=== PATIENT | female | born 1940 | race African-American/Black ===

== ENCOUNTER 2021-12-22 14:26 | Inpatient (IN) | payer OTHER, BC ==
[2021-12-22 14:48] VITALS: BMI 27.4
[2021-12-22] MEDS ORDERED: VANCOMYCIN/WATER 1,250 MG/250 ML BAG IVPB ONE (16:15)
[2021-12-22] MEDS ORDERED: PIPERACILLIN/TAZOB 3.375 GM 3.375 GM in DEXTROSE 5%-WATER - 50 ML IVPB ONE (16:16)
[2021-12-22 17:40] LABS: BASO % 0.4 % (0-2.0); EOS % 0.5 % (0-4.5); HEMATOCRIT 31.4 % (32.4-45.2); HEMOGLOBIN 10.5 GM/dL (10.7-15.3); LYMPH % 6.3 % (8-40); MCH 34.1 pg (25.7-33.7); MCHC 33.3 g/dl (32.0-36.0); MEAN CELL VOLUME 102.3 fl (80-96); MEAN PLT VOLUME 8.5 fl (7.5-11.1); MONO % 1.8 % (3.8-10.2); PLATELET COUNT 263 10^3/uL (134-434); RBC 3.07 M/mm3 (3.60-5.2); RDW 13.3 % (11.6-15.6); WHITE BLOOD COUNT 8.6 K/mm3 (4.0-10.0)
[2021-12-22 17:51] LABS: INR 1.16 (0.83-1.09); PROTHROMBIN TIME (PATIENT) 13.4 SEC (9.7-13.0)
[2021-12-22] MEDS ORDERED: VANCOMYCIN/WATER 1250 MG 1,250 MG/250 ML BAG IVPB ONE (18:11)
[2021-12-22] MEDS ORDERED: PIPERACILLIN/TAZOB 3.375 GM 3.375 GM/50 ML BAG IVPB ONE (18:11)
[2021-12-22 18:26] LABS: BLOOD UREA NITROGEN 21.4 mg/dL (7-18)
[2021-12-22 18:27] LABS: ALBUMIN 2.8 g/dl (3.4-5.0)
[2021-12-22 18:31] LABS: BILIRUBIN,TOTAL 0.7 mg/dL (0.2-1)
[2021-12-22 18:32] LABS: TOT PROT 6.9 g/dl (6.4-8.2)
[2021-12-22 20:20] LABS: ANISOCYTOSIS 2+; MACROCYTOSIS 0
[2021-12-22 20:23] LABS: PLATELET ESTIMATE ADEQUATE
[2021-12-22] MEDS ORDERED: CLOTRIMAZOLE 1% CREAM TP SCH (23:15)
[2021-12-22 23:34] LABS: CHLORIDE 105 mmol/L (98-107); SODIUM 139 mmol/L (136-145)
[2021-12-22 23:36] LABS: CALCIUM 8.7 mg/dL (8.5-10.1)
[2021-12-22 23:37] LABS: ALBUMIN 2.6 g/dl (3.4-5.0); ANION GAP 4 MMOL/L (8-16); BLOOD UREA NITROGEN 20.6 mg/dL (7-18); CO2 30 mmol/L (21-32)
[2021-12-22 23:40] LABS: SGOT/AST 31 U/L (15-37); SGPT/ALT 46 U/L (13-61)
[2021-12-22 23:41] LABS: BILIRUBIN,TOTAL 0.8 mg/dL (0.2-1); TOT PROT 6.5 g/dl (6.4-8.2)
[2021-12-22 23:42] LABS: ALK PHOS 144 U/L (45-117)
[2021-12-22 23:44] LABS: GLUCOSE,RANDOM 456 mg/dL (74-106)
[2021-12-23] MEDS ORDERED: INSULIN (NOVOLOG) ASPART 100 UNITS/ML 10ML VIAL SQ SCH ×2 (00:51→07:00)
[2021-12-23] MEDS ORDERED: INSULIN (LEVEMIR) 100 UNITS/ML UNITS SQ ONE (01:01)
[2021-12-23] MEDS: FLUTICASONE/SALMETEROL 100 MCG/50 MCG DISKUS IH SCH ×2 (01:11→09:59)
[2021-12-23 06:57] LABS: BASO % 0.5 % (0-2.0); EOS % 2.6 % (0-4.5); HEMOGLOBIN 10.4 GM/dL (10.7-15.3); LYMPH % 18.3 % (8-40); MCH 33.8 pg (25.7-33.7); MCHC 33.4 g/dl (32.0-36.0); MEAN CELL VOLUME 101.3 fl (80-96); MEAN PLT VOLUME 8.3 fl (7.5-11.1); NEUT % 70.6 % (42.8-82.8); PLATELET COUNT 202 10^3/uL (134-434); RBC 3.07 M/mm3 (3.60-5.2); WHITE BLOOD COUNT 8.8 K/mm3 (4.0-10.0)
[2021-12-23 07:16] LABS: CALCIUM 8.8 mg/dL (8.5-10.1)
[2021-12-23 07:17] LABS: ALBUMIN 2.6 g/dl (3.4-5.0); BLOOD UREA NITROGEN 16.8 mg/dL (7-18)
[2021-12-23 07:20] LABS: CREATININE 0.7 mg/dL (0.55-1.3); PHOSPHOROUS 2.3 mg/dL (2.5-4.9)
[2021-12-23 07:21] LABS: BILIRUBIN,TOTAL 0.8 mg/dL (0.2-1); MAGNESIUM 1.6 mg/dL (1.8-2.4)
[2021-12-23 07:22] LABS: TOT PROT 6.4 g/dl (6.4-8.2)
[2021-12-23] MEDS ORDERED: NAPH,MB-DB/K PH,MBDB POWDER PACKET ONE (07:26)
[2021-12-23] MEDS ORDERED: MAGNESIUM SULFATE IN WATER 2 GM/50 ML IVPB IVPB ONE (07:27)
[2021-12-23] MEDS ORDERED: CLOTRIMAZOLE 1% CREAM TP SCH (07:29)
[2021-12-23] MEDS ORDERED: MAGNESIUM 2GM/50ML STERILE WATER IVPB IVPB ONE (07:30)
[2021-12-23] MEDS ORDERED: NAPH,MB-DB/K PH,MBDB POWDER PACKET PO ONE (07:30)
[2021-12-23] MEDS: INSULIN (NOVOLOG) ASPART 100 UNITS/ML 10ML VIAL SQ SCH ×3 (09:08→17:30)
[2021-12-23] MEDS ORDERED: PANTOPRAZOLE 40 MG TABLET PO ONE (09:11)
[2021-12-23] MEDS ORDERED: SPIRONOLACTONE 25 MG TABLET ONE (09:11)
[2021-12-23] MEDS ORDERED: PIPERACILLIN/TAZOB 3.375 GM 3.375 GM/50 ML BAG IVPB ONE (09:12)
[2021-12-23] MEDS ORDERED: ENOXAPARIN NA (PORCINE) 40 MG/0.4 ML DISP.SYRIN SQ ONE (09:12)
[2021-12-23] MEDS ORDERED: MAGNESIUM OXIDE 400 MG TABLET (FP) PO ONE (09:43)
[2021-12-23] MEDS: SPIRONOLACTONE 25 MG TABLET PO SCH (09:45)
[2021-12-23] MEDS: LOSARTAN POTASSIUM 25 MG TABLET PO SCH (09:45)
[2021-12-23] MEDS: predniSONE 5 MG TABLET (UD) PO SCH (09:46)
[2021-12-23] MEDS: PIPERACILLIN/TAZOB 3.375 GM 3.375 GM in DEXTROSE 5%-WATER - 50 ML IVPB SCH ×3 (09:46→17:31)
[2021-12-23] MEDS: ENOXAPARIN NA (PORCINE) 40 MG/0.4 ML DISP.SYRIN SQ SCH (09:46)
[2021-12-23] MEDS: PANTOPRAZOLE 40 MG TABLET PO SCH (09:46)
[2021-12-23] MEDS ORDERED: PATIENT'S OWN MEDICATION (NON-FORMULARY) (Levalbuterol Tartrate [Levalbuterol Tartrate Hfa IH SCH (10:00)
[2021-12-23] MEDS ORDERED: PIPERACILLIN/TAZOB 3.375 GM 3.375 GM in DEXTROSE 5%-WATER - 50 ML IVPB SCH (10:00)
[2021-12-23] MEDS ORDERED: TROSPIUM CHLORIDE PO SCH (10:00)
[2021-12-23] MEDS ORDERED: VANCOMYCIN 1 GM in D5W (PRE-DOCKED) 1,000 MG/250 ML IVPB SCH ×2 (10:00→20:00)
[2021-12-23] MEDS: VANCOMYCIN/WATER FOR INJ (PEG) 1,000 MG/200 ML BAG IVPB SCH (14:37)
[2021-12-23] MEDS ORDERED: DEXTROSE 5%-WATER - 50 ML IVPB ONE (17:20)
[2021-12-23] MEDS ORDERED: PIPERACILLIN/TAZOBACTAM 3.375 GM VIAL IVPB ONE (17:20)
[2021-12-23] MEDS: CLOTRIMAZOLE 1% CREAM TP SCH (23:32)
[2021-12-23] MEDS: INSULIN (LEVEMIR) 100 UNITS/ML UNITS SQ SCH (23:33)
[2021-12-23] MEDS: ZINC OXIDE 20% TOPICAL OINTMENT 30 GM TUBE TP SCH (23:34)
[2021-12-24] MEDS: FLUTICASONE/SALMETEROL 100 MCG/50 MCG DISKUS IH SCH ×3 (00:17→21:08)
[2021-12-24] MEDS ORDERED: PIPERACILLIN/TAZOBACTAM 3.375 GM VIAL IVPB ONE ×3 (02:29→18:25)
[2021-12-24] MEDS ORDERED: DEXTROSE 5%-WATER - 50 ML IVPB ONE ×3 (02:29→18:25)
[2021-12-24] MEDS: PIPERACILLIN/TAZOB 3.375 GM 3.375 GM in DEXTROSE 5%-WATER - 50 ML IVPB SCH ×3 (02:50→18:36)
[2021-12-24] MEDS: VANCOMYCIN/WATER FOR INJ (PEG) 1,000 MG/200 ML BAG IVPB SCH ×3 (02:51→23:44)
[2021-12-24] MEDS: INSULIN (NOVOLOG) ASPART 100 UNITS/ML 10ML VIAL SQ SCH ×3 (06:44→18:21)
[2021-12-24] MEDS: INSULIN (LEVEMIR) 100 UNITS/ML UNITS SQ SCH ×2 (06:45→21:09)
[2021-12-24 09:48] LABS: HEMOGLOBIN 10.7 GM/dL (10.7-15.3); MCHC 33.5 g/dl (32.0-36.0); MEAN CELL VOLUME 101.5 fl (80-96); MEAN PLT VOLUME 7.9 fl (7.5-11.1); PLATELET COUNT 215 10^3/uL (134-434); RBC 3.15 M/mm3 (3.60-5.2); RDW 12.9 % (11.6-15.6); WHITE BLOOD COUNT 8.4 K/mm3 (4.0-10.0)
[2021-12-24 10:20] LABS: CALCIUM 9.3 mg/dL (8.5-10.1)
[2021-12-24 10:23] LABS: BLOOD UREA NITROGEN 19.5 mg/dL (7-18)
[2021-12-24 10:24] LABS: ALBUMIN 2.6 g/dl (3.4-5.0); MAGNESIUM 1.8 mg/dL (1.8-2.4)
[2021-12-24 10:27] LABS: CREATININE 0.8 mg/dL (0.55-1.3); PHOSPHOROUS 3.6 mg/dL (2.5-4.9)
[2021-12-24 10:29] LABS: BILIRUBIN,TOTAL 1.2 mg/dL (0.2-1); TOT PROT 6.1 g/dl (6.4-8.2)
[2021-12-24] MEDS: PANTOPRAZOLE 40 MG TABLET PO SCH (12:37)
[2021-12-24] MEDS: LOSARTAN POTASSIUM 25 MG TABLET PO SCH (12:37)
[2021-12-24] MEDS: predniSONE 5 MG TABLET (UD) PO SCH (12:37)
[2021-12-24] MEDS: ENOXAPARIN NA (PORCINE) 40 MG/0.4 ML DISP.SYRIN SQ SCH (12:37)
[2021-12-24] MEDS ORDERED: DEXTROSE 50%-WATER - 25 GM/50 ML VIAL IVPUSH PRN (12:37)
[2021-12-24] MEDS: SPIRONOLACTONE 25 MG TABLET PO SCH (12:56)
[2021-12-24] MEDS: CLOTRIMAZOLE 1% CREAM TP SCH ×2 (14:40→21:09)
[2021-12-24] MEDS: ZINC OXIDE 20% TOPICAL OINTMENT 30 GM TUBE TP SCH ×2 (14:41→21:09)
[2021-12-24] MEDS ORDERED: Insulin (LOG) Aspart 100 UNITS/ML VIAL SQ SCH (16:30)
[2021-12-24] MEDS: Insulin (LOG) Aspart 100 UNITS/ML VIAL SQ SCH (18:21)
[2021-12-24] MEDS: ACETAMINOPHEN 325 MG TABLET (FP) PO PRN (19:16)
[2021-12-24] MEDS: DOCUSATE SODIUM 100 MG CAPSULE (FP) PO SCH (21:08)
[2021-12-25] MEDS ORDERED: DEXTROSE 5%-WATER - 50 ML IVPB ONE ×3 (01:36→17:03)
[2021-12-25] MEDS ORDERED: PIPERACILLIN/TAZOBACTAM 3.375 GM VIAL IVPB ONE ×3 (01:36→17:02)
[2021-12-25] MEDS: PIPERACILLIN/TAZOB 3.375 GM 3.375 GM in DEXTROSE 5%-WATER - 50 ML IVPB SCH ×3 (01:53→19:40)
[2021-12-25] MEDS: ACETAMINOPHEN 325 MG TABLET (FP) PO PRN ×3 (02:27→22:40)
[2021-12-25] MEDS: INSULIN (NOVOLOG) ASPART 100 UNITS/ML 10ML VIAL SQ SCH ×3 (06:04→16:35)
[2021-12-25] MEDS: Insulin (LOG) Aspart 100 UNITS/ML VIAL SQ SCH ×3 (06:05→16:34)
[2021-12-25] MEDS: INSULIN (LEVEMIR) 100 UNITS/ML UNITS SQ SCH ×2 (06:05→22:39)
[2021-12-25 09:27] LABS: BASO % 0.4 % (0-2.0); EOS % 1.8 % (0-4.5); HEMATOCRIT 36.1 % (32.4-45.2); HEMOGLOBIN 12.1 GM/dL (10.7-15.3); LYMPH % 10.4 % (8-40); MCH 33.8 pg (25.7-33.7); MCHC 33.6 g/dl (32.0-36.0); MEAN CELL VOLUME 100.6 fl (80-96); MEAN PLT VOLUME 8.3 fl (7.5-11.1); MONO % 8.5 % (3.8-10.2); NEUT % 78.9 % (42.8-82.8); PLATELET COUNT 233 10^3/uL (134-434); RBC 3.59 M/mm3 (3.60-5.2); RDW 12.7 % (11.6-15.6); WHITE BLOOD COUNT 14.5 K/mm3 (4.0-10.0)
[2021-12-25 10:07] LABS: CALCIUM 9.2 mg/dL (8.5-10.1)
[2021-12-25 10:08] LABS: BLOOD UREA NITROGEN 20.7 mg/dL (7-18); MAGNESIUM 1.7 mg/dL (1.8-2.4)
[2021-12-25] MEDS: ENOXAPARIN NA (PORCINE) 40 MG/0.4 ML DISP.SYRIN SQ SCH (10:08)
[2021-12-25] MEDS: LOSARTAN POTASSIUM 25 MG TABLET PO SCH (10:09)
[2021-12-25] MEDS: SPIRONOLACTONE 25 MG TABLET PO SCH (10:09)
[2021-12-25] MEDS: PANTOPRAZOLE 40 MG TABLET PO SCH (10:09)
[2021-12-25] MEDS: DOCUSATE SODIUM 100 MG CAPSULE (FP) PO SCH ×2 (10:09→22:39)
[2021-12-25] MEDS: FLUTICASONE/SALMETEROL 100 MCG/50 MCG DISKUS IH SCH ×2 (10:10→22:39)
[2021-12-25 10:11] LABS: CREATININE 0.8 mg/dL (0.55-1.3); PHOSPHOROUS 3.1 mg/dL (2.5-4.9)
[2021-12-25] MEDS: ZINC OXIDE 20% TOPICAL OINTMENT 30 GM TUBE TP SCH ×2 (10:14→22:40)
[2021-12-25] MEDS: CLOTRIMAZOLE 1% CREAM TP SCH ×2 (10:14→22:40)
[2021-12-25] MEDS: predniSONE 5 MG TABLET (UD) PO SCH (10:26)
[2021-12-25] MEDS: MAGNESIUM SULF 50% (8.12 MEQ/2 ML-1 GM VIAL) IVPB ONE ×2 (15:18→17:53)
[2021-12-25] MEDS: VANCOMYCIN/WATER FOR INJ (PEG) 1,000 MG/200 ML BAG IVPB SCH (16:35)
[2021-12-26] MEDS ORDERED: PIPERACILLIN/TAZOBACTAM 3.375 GM VIAL IVPB ONE ×3 (01:34→17:18)
[2021-12-26] MEDS ORDERED: DEXTROSE 5%-WATER - 50 ML IVPB ONE ×3 (01:34→17:18)
[2021-12-26] MEDS: PIPERACILLIN/TAZOB 3.375 GM 3.375 GM in DEXTROSE 5%-WATER - 50 ML IVPB SCH ×3 (01:43→17:58)
[2021-12-26] MEDS: INSULIN (LEVEMIR) 100 UNITS/ML UNITS SQ SCH ×2 (06:17→22:01)
[2021-12-26] MEDS: INSULIN (NOVOLOG) ASPART 100 UNITS/ML 10ML VIAL SQ SCH ×3 (06:17→17:28)
[2021-12-26] MEDS: Insulin (LOG) Aspart 100 UNITS/ML VIAL SQ SCH ×3 (06:17→17:27)
[2021-12-26] MEDS: ACETAMINOPHEN 325 MG TABLET (FP) PO PRN ×2 (08:47→15:06)
[2021-12-26] MEDS ORDERED: VANCOMYCIN 1 GM/200 ML PREMIX BAG IVPB SCH (09:00)
[2021-12-26] MEDS ORDERED: VANCOMYCIN 1 GM in D5W (PRE-DOCKED) 1,000 MG/250 ML IVPB SCH (10:00)
[2021-12-26] MEDS: ZINC OXIDE 20% TOPICAL OINTMENT 30 GM TUBE TP SCH ×2 (10:45→22:02)
[2021-12-26] MEDS: DOCUSATE SODIUM 100 MG CAPSULE (FP) PO SCH ×2 (10:47→22:03)
[2021-12-26] MEDS: PANTOPRAZOLE 40 MG TABLET PO SCH (10:47)
[2021-12-26] MEDS: predniSONE 5 MG TABLET (UD) PO SCH (10:48)
[2021-12-26] MEDS: FLUTICASONE/SALMETEROL 100 MCG/50 MCG DISKUS IH SCH ×2 (10:48→22:00)
[2021-12-26] MEDS: CLOTRIMAZOLE 1% CREAM TP SCH ×2 (10:53→22:01)
[2021-12-26] MEDS: ENOXAPARIN NA (PORCINE) 40 MG/0.4 ML DISP.SYRIN SQ SCH (10:53)
[2021-12-26] MEDS: LOSARTAN POTASSIUM 25 MG TABLET PO SCH (11:34)
[2021-12-26] MEDS ORDERED: SODIUM CHLORIDE 0.9% 500 ML INFUS.BAG IV ONE (12:09)
[2021-12-26] MEDS ORDERED: SODIUM CHLORIDE 500 ML IV ONE ×2 (12:15→14:45)
[2021-12-26] MEDS: SPIRONOLACTONE 25 MG TABLET PO SCH (12:57)
[2021-12-26 13:08] LABS: BASO % 0.3 % (0-2.0); EOS % 1.3 % (0-4.5); HEMATOCRIT 33.8 % (32.4-45.2); HEMOGLOBIN 11.1 GM/dL (10.7-15.3); LYMPH % 12.3 % (8-40); MCH 33.4 pg (25.7-33.7); MCHC 32.8 g/dl (32.0-36.0); MEAN CELL VOLUME 101.8 fl (80-96); MONO % 9.7 % (3.8-10.2); NEUT % 76.4 % (42.8-82.8); PLATELET COUNT 226 10^3/uL (134-434); RBC 3.32 M/mm3 (3.60-5.2); RDW 13.2 % (11.6-15.6); WHITE BLOOD COUNT 18.3 K/mm3 (4.0-10.0)
[2021-12-26 13:36] LABS: CALCIUM 8.6 mg/dL (8.5-10.1)
[2021-12-26 13:37] LABS: ALBUMIN 2.3 g/dl (3.4-5.0); MAGNESIUM 2.3 mg/dL (1.8-2.4)
[2021-12-26 13:40] LABS: CREATININE 1.4 mg/dL (0.55-1.3); PHOSPHOROUS 5.1 mg/dL (2.5-4.9)
[2021-12-26 13:41] LABS: BILIRUBIN,TOTAL 1.6 mg/dL (0.2-1); TOT PROT 5.8 g/dl (6.4-8.2)
[2021-12-27] MEDS ORDERED: PIPERACILLIN/TAZOBACTAM 3.375 GM VIAL IVPB ONE ×3 (01:10→17:03)
[2021-12-27] MEDS ORDERED: DEXTROSE 5%-WATER - 50 ML IVPB ONE ×3 (01:11→17:04)
[2021-12-27] MEDS: PIPERACILLIN/TAZOB 3.375 GM 3.375 GM in DEXTROSE 5%-WATER - 50 ML IVPB SCH ×3 (01:37→17:23)
[2021-12-27] MEDS: INSULIN (NOVOLOG) ASPART 100 UNITS/ML 10ML VIAL SQ SCH ×3 (06:29→17:24)
[2021-12-27] MEDS: Insulin (LOG) Aspart 100 UNITS/ML VIAL SQ SCH ×3 (06:34→17:25)
[2021-12-27] MEDS: INSULIN (LEVEMIR) 100 UNITS/ML UNITS SQ SCH ×2 (06:34→21:25)
[2021-12-27] MEDS: CLOTRIMAZOLE 1% CREAM TP SCH ×2 (10:06→21:24)
[2021-12-27] MEDS: DOCUSATE SODIUM 100 MG CAPSULE (FP) PO SCH ×2 (10:09→21:25)
[2021-12-27] MEDS: PANTOPRAZOLE 40 MG TABLET PO SCH (10:09)
[2021-12-27] MEDS: predniSONE 5 MG TABLET (UD) PO SCH (10:09)
[2021-12-27] MEDS: FLUTICASONE/SALMETEROL 100 MCG/50 MCG DISKUS IH SCH ×2 (10:10→21:24)
[2021-12-27] MEDS: ENOXAPARIN NA (PORCINE) 40 MG/0.4 ML DISP.SYRIN SQ SCH (10:10)
[2021-12-27 10:24] LABS: CALCIUM 8.3 mg/dL (8.5-10.1)
[2021-12-27 10:25] LABS: ALBUMIN 2.2 g/dl (3.4-5.0); BASO % 0.5 % (0-2.0); BLOOD UREA NITROGEN 38.7 mg/dL (7-18); HEMATOCRIT 30.5 % (32.4-45.2); HEMOGLOBIN 10.1 GM/dL (10.7-15.3); MAGNESIUM 2.4 mg/dL (1.8-2.4); MCH 33.7 pg (25.7-33.7); MCHC 33.1 g/dl (32.0-36.0); MEAN CELL VOLUME 101.7 fl (80-96); MEAN PLT VOLUME 7.7 fl (7.5-11.1); MONO % 7.2 % (3.8-10.2); NEUT % 80.3 % (42.8-82.8); PLATELET COUNT 190 10^3/uL (134-434); RDW 12.9 % (11.6-15.6)
[2021-12-27 10:27] LABS: CREATININE 1.3 mg/dL (0.55-1.3)
[2021-12-27 10:29] LABS: BILIRUBIN,TOTAL 0.9 mg/dL (0.2-1); TOT PROT 5.5 g/dl (6.4-8.2)
[2021-12-27] MEDS: metoPROLOL SUCCINATE 25 MG TAB.SR.24H (FP) PO SCH (11:20)
[2021-12-27] MEDS: LOSARTAN POTASSIUM 25 MG TABLET PO SCH (11:20)
[2021-12-27] MEDS: SPIRONOLACTONE 25 MG TABLET PO SCH (11:20)
[2021-12-27] MEDS ORDERED: VANCOMYCIN 1 GM/200 ML PREMIX BAG IVPB SCH (12:00)
[2021-12-27] MEDS: ACETAMINOPHEN 325 MG TABLET (FP) PO PRN (17:50)
[2021-12-27] MEDS ORDERED: guaiFENesin 200 MG/10 ML 10 ML UNIT-DOSE CUPS PO ONE (19:41)
[2021-12-28] MEDS ORDERED: DEXTROSE 5%-WATER - 50 ML IVPB ONE ×3 (02:20→18:18)
[2021-12-28] MEDS ORDERED: PIPERACILLIN/TAZOBACTAM 3.375 GM VIAL IVPB ONE ×3 (02:20→18:18)
[2021-12-28] MEDS: PIPERACILLIN/TAZOB 3.375 GM 3.375 GM in DEXTROSE 5%-WATER - 50 ML IVPB SCH ×3 (02:37→18:56)
[2021-12-28] MEDS: Insulin (LOG) Aspart 100 UNITS/ML VIAL SQ SCH ×3 (06:47→17:42)
[2021-12-28] MEDS: INSULIN (LEVEMIR) 100 UNITS/ML UNITS SQ SCH ×2 (07:44→21:40)
[2021-12-28] MEDS: INSULIN (NOVOLOG) ASPART 100 UNITS/ML 10ML VIAL SQ SCH ×3 (07:44→17:42)
[2021-12-28 09:50] LABS: BASO % 0.6 % (0-2.0); EOS % 3.4 % (0-4.5); HEMATOCRIT 29.2 % (32.4-45.2); HEMOGLOBIN 10.1 GM/dL (10.7-15.3); LYMPH % 15.5 % (8-40); MCH 34.7 pg (25.7-33.7); MCHC 34.6 g/dl (32.0-36.0); MEAN CELL VOLUME 100.4 fl (80-96); MEAN PLT VOLUME 7.6 fl (7.5-11.1); MONO % 6.8 % (3.8-10.2); NEUT % 73.7 % (42.8-82.8); PLATELET COUNT 204 10^3/uL (134-434); RBC 2.91 M/mm3 (3.60-5.2); RDW 12.7 % (11.6-15.6); WHITE BLOOD COUNT 9.5 K/mm3 (4.0-10.0)
[2021-12-28 10:09] LABS: ALBUMIN 2.1 g/dl (3.4-5.0); CALCIUM 8.3 mg/dL (8.5-10.1)
[2021-12-28 10:10] LABS: BLOOD UREA NITROGEN 26.9 mg/dL (7-18)
[2021-12-28 10:12] LABS: CREATININE 0.8 mg/dL (0.55-1.3)
[2021-12-28 10:14] LABS: BILIRUBIN,TOTAL 0.6 mg/dL (0.2-1); TOT PROT 5.6 g/dl (6.4-8.2)
[2021-12-28] MEDS: LOSARTAN POTASSIUM 25 MG TABLET PO SCH (11:10)
[2021-12-28] MEDS: predniSONE 5 MG TABLET (UD) PO SCH (11:11)
[2021-12-28] MEDS: PANTOPRAZOLE 40 MG TABLET PO SCH (11:11)
[2021-12-28] MEDS: ENOXAPARIN NA (PORCINE) 40 MG/0.4 ML DISP.SYRIN SQ SCH (11:11)
[2021-12-28] MEDS: metoPROLOL SUCCINATE 25 MG TAB.SR.24H (FP) PO SCH (11:11)
[2021-12-28] MEDS: ZINC OXIDE 20% TOPICAL OINTMENT 30 GM TUBE TP SCH ×2 (11:11→21:40)
[2021-12-28] MEDS: CLOTRIMAZOLE 1% CREAM TP SCH ×2 (11:11→21:40)
[2021-12-28] MEDS: SPIRONOLACTONE 25 MG TABLET PO SCH (11:11)
[2021-12-28] MEDS: FLUTICASONE/SALMETEROL 100 MCG/50 MCG DISKUS IH SCH ×2 (11:11→21:40)
[2021-12-28] MEDS: DOCUSATE SODIUM 100 MG CAPSULE (FP) PO SCH ×2 (11:11→21:40)
[2021-12-28] MEDS ORDERED: INSULIN SLIDING SCALE (NOVOLOG) 1 VIAL SQ ONE (11:21)
[2021-12-28] MEDS ORDERED: VANCOMYCIN 1 GM/200 ML PREMIX BAG IVPB SCH (12:00)
[2021-12-28] MEDS: VANCOMYCIN/WATER FOR INJ (PEG) 1,000 MG/200 ML BAG IVPB SCH (12:38)
[2021-12-29] MEDS ORDERED: DEXTROSE 5%-WATER - 50 ML IVPB ONE ×3 (01:24→17:01)
[2021-12-29] MEDS ORDERED: PIPERACILLIN/TAZOBACTAM 3.375 GM VIAL IVPB ONE ×3 (01:24→17:01)
[2021-12-29] MEDS: PIPERACILLIN/TAZOB 3.375 GM 3.375 GM in DEXTROSE 5%-WATER - 50 ML IVPB SCH ×3 (01:38→18:27)
[2021-12-29] MEDS: INSULIN (NOVOLOG) ASPART 100 UNITS/ML 10ML VIAL SQ SCH ×3 (06:05→18:27)
[2021-12-29] MEDS: Insulin (LOG) Aspart 100 UNITS/ML VIAL SQ SCH ×3 (06:05→18:26)
[2021-12-29] MEDS: INSULIN (LEVEMIR) 100 UNITS/ML UNITS SQ SCH ×2 (06:26→21:29)
[2021-12-29] MEDS: metoPROLOL SUCCINATE 25 MG TAB.SR.24H (FP) PO SCH (10:49)
[2021-12-29] MEDS: ENOXAPARIN NA (PORCINE) 40 MG/0.4 ML DISP.SYRIN SQ SCH (11:00)
[2021-12-29] MEDS: LOSARTAN POTASSIUM 25 MG TABLET PO SCH (11:01)
[2021-12-29] MEDS: SPIRONOLACTONE 25 MG TABLET PO SCH (11:01)
[2021-12-29] MEDS: DOCUSATE SODIUM 100 MG CAPSULE (FP) PO SCH ×2 (11:01→21:29)
[2021-12-29] MEDS: predniSONE 5 MG TABLET (UD) PO SCH (11:01)
[2021-12-29] MEDS: PANTOPRAZOLE 40 MG TABLET PO SCH (11:01)
[2021-12-29] MEDS: FLUTICASONE/SALMETEROL 100 MCG/50 MCG DISKUS IH SCH ×2 (11:03→21:30)
[2021-12-29] MEDS: ZINC OXIDE 20% TOPICAL OINTMENT 30 GM TUBE TP SCH ×2 (11:05→21:30)
[2021-12-29] MEDS: CLOTRIMAZOLE 1% CREAM TP SCH ×2 (11:06→21:30)
[2021-12-29] MEDS ORDERED: INSULIN SLIDING SCALE (NOVOLOG) 1 VIAL SQ ONE (12:33)
[2021-12-29] MEDS: VANCOMYCIN/WATER FOR INJ (PEG) 1,000 MG/200 ML BAG IVPB SCH (12:46)
[2021-12-29] MEDS ORDERED: LEVOTHYROXINE SODIUM 100 MCG VIAL IVPUSH ONE (13:17)
[2021-12-29 18:16] LABS: N-TERMINAL BNP 353.1 pg/ml (5-450)
[2021-12-29] MEDS: ATORVASTATIN CA 40 MG TABLET (FP) PO SCH (21:29)
[2021-12-29] MEDS ORDERED: guaiFENesin 200 MG/10 ML 10 ML UNIT-DOSE CUPS PO ONE (23:36)
[2021-12-30] MEDS ORDERED: DEXTROSE 5%-WATER - 50 ML IVPB ONE ×3 (01:39→17:28)
[2021-12-30] MEDS ORDERED: PIPERACILLIN/TAZOBACTAM 3.375 GM VIAL IVPB ONE ×3 (01:39→17:27)
[2021-12-30] MEDS: PIPERACILLIN/TAZOB 3.375 GM 3.375 GM in DEXTROSE 5%-WATER - 50 ML IVPB SCH ×3 (01:58→18:09)
[2021-12-30] MEDS ORDERED: DEXTROSE 50%-WATER - 25 GM/50 ML VIAL ONE (05:57)
[2021-12-30] MEDS: INSULIN (LEVEMIR) 100 UNITS/ML UNITS SQ SCH ×2 (06:01→21:54)
[2021-12-30] MEDS: LEVOTHYROXINE NA 88 MCG TABLET (FP) PO SCH (06:01)
[2021-12-30] MEDS: INSULIN (NOVOLOG) ASPART 100 UNITS/ML 10ML VIAL SQ SCH ×3 (06:01→18:02)
[2021-12-30] MEDS: Insulin (LOG) Aspart 100 UNITS/ML VIAL SQ SCH ×3 (06:01→18:01)
[2021-12-30] MEDS: FLUTICASONE/SALMETEROL 100 MCG/50 MCG DISKUS IH SCH ×2 (11:32→21:55)
[2021-12-30] MEDS: DOCUSATE SODIUM 100 MG CAPSULE (FP) PO SCH ×2 (11:32→21:51)
[2021-12-30] MEDS: PANTOPRAZOLE 40 MG TABLET PO SCH (11:33)
[2021-12-30] MEDS: LOSARTAN POTASSIUM 25 MG TABLET PO SCH (11:33)
[2021-12-30] MEDS: SPIRONOLACTONE 25 MG TABLET PO SCH (11:33)
[2021-12-30] MEDS: predniSONE 5 MG TABLET (UD) PO SCH (11:33)
[2021-12-30] MEDS: metoPROLOL SUCCINATE 25 MG TAB.SR.24H (FP) PO SCH (11:33)
[2021-12-30] MEDS: ZINC OXIDE 20% TOPICAL OINTMENT 30 GM TUBE TP SCH ×2 (11:36→21:54)
[2021-12-30] MEDS: CLOTRIMAZOLE 1% CREAM TP SCH ×2 (11:36→21:54)
[2021-12-30] MEDS: VANCOMYCIN/WATER FOR INJ (PEG) 1,000 MG/200 ML BAG IVPB SCH (13:45)
[2021-12-30] MEDS: ENOXAPARIN NA (PORCINE) 40 MG/0.4 ML DISP.SYRIN SQ SCH (19:53)
[2021-12-30] MEDS: ATORVASTATIN CA 40 MG TABLET (FP) PO SCH (21:51)
[2021-12-31] MEDS ORDERED: PIPERACILLIN/TAZOBACTAM 3.375 GM VIAL IVPB ONE ×3 (00:58→16:49)
[2021-12-31] MEDS ORDERED: DEXTROSE 5%-WATER - 50 ML IVPB ONE ×3 (00:58→16:49)
[2021-12-31] MEDS: PIPERACILLIN/TAZOB 3.375 GM 3.375 GM in DEXTROSE 5%-WATER - 50 ML IVPB SCH ×3 (01:59→17:08)
[2021-12-31] MEDS: INSULIN (LEVEMIR) 100 UNITS/ML UNITS SQ SCH (06:14)
[2021-12-31] MEDS: Insulin (LOG) Aspart 100 UNITS/ML VIAL SQ SCH ×3 (06:14→17:18)
[2021-12-31] MEDS: INSULIN SLIDING SCALE (NOVOLOG) 1 VIAL SQ SCH ×3 (06:14→17:19)
[2021-12-31] MEDS: LEVOTHYROXINE NA 88 MCG TABLET (FP) PO SCH (06:14)
[2021-12-31] MEDS: SPIRONOLACTONE 25 MG TABLET PO SCH (10:29)
[2021-12-31] MEDS: metoPROLOL SUCCINATE 25 MG TAB.SR.24H (FP) PO SCH (10:30)
[2021-12-31] MEDS: LOSARTAN POTASSIUM 25 MG TABLET PO SCH (10:30)
[2021-12-31] MEDS: ENOXAPARIN NA (PORCINE) 40 MG/0.4 ML DISP.SYRIN SQ SCH (10:31)
[2021-12-31] MEDS: DOCUSATE SODIUM 100 MG CAPSULE (FP) PO SCH ×2 (10:32→21:29)
[2021-12-31] MEDS: predniSONE 5 MG TABLET (UD) PO SCH (10:32)
[2021-12-31] MEDS: PANTOPRAZOLE 40 MG TABLET PO SCH (10:33)
[2021-12-31] MEDS: FLUTICASONE/SALMETEROL 100 MCG/50 MCG DISKUS IH SCH ×2 (10:36→21:29)
[2021-12-31] MEDS: ZINC OXIDE 20% TOPICAL OINTMENT 30 GM TUBE TP SCH (10:36)
[2021-12-31] MEDS: CLOTRIMAZOLE 1% CREAM TP SCH ×2 (10:37→21:29)
[2021-12-31] MEDS: ACETAMINOPHEN 325 MG TABLET (FP) PO PRN ×2 (10:44→17:15)
[2021-12-31] MEDS: VANCOMYCIN/WATER FOR INJ (PEG) 1,000 MG/200 ML BAG IVPB SCH (12:00)
[2021-12-31] MEDS ORDERED: VANCOMYCIN/WATER FOR INJ (PEG) 1,000 MG/200 ML BAG IVPB SCH (18:00)
[2021-12-31] MEDS: ATORVASTATIN CA 40 MG TABLET (FP) PO SCH (21:29)
[2022-01-01] MEDS ORDERED: DEXTROSE 5%-WATER - 50 ML IVPB ONE ×2 (01:48→17:26)
[2022-01-01] MEDS ORDERED: PIPERACILLIN/TAZOBACTAM 3.375 GM VIAL IVPB ONE ×2 (01:48→17:26)
[2022-01-01] MEDS: ZINC OXIDE 20% TOPICAL OINTMENT 30 GM TUBE TP SCH ×3 (02:01→21:48)
[2022-01-01] MEDS: PIPERACILLIN/TAZOB 3.375 GM 3.375 GM in DEXTROSE 5%-WATER - 50 ML IVPB SCH ×3 (02:04→17:46)
[2022-01-01] MEDS: INSULIN SLIDING SCALE (NOVOLOG) 1 VIAL SQ SCH ×3 (06:26→18:02)
[2022-01-01] MEDS: Insulin (LOG) Aspart 100 UNITS/ML VIAL SQ SCH ×3 (06:26→17:56)
[2022-01-01] MEDS: LEVOTHYROXINE NA 88 MCG TABLET (FP) PO SCH (06:27)
[2022-01-01] MEDS: metoPROLOL SUCCINATE 25 MG TAB.SR.24H (FP) PO SCH (10:18)
[2022-01-01 11:00] LABS: INR 1.09 (0.83-1.09); PROTHROMBIN TIME (PATIENT) 12.5 SEC (9.7-13.0)
[2022-01-01 11:08] LABS: BASO % 0.8 % (0-2.0); EOS % 4.2 % (0-4.5); HEMATOCRIT 30.4 % (32.4-45.2); HEMOGLOBIN 10.2 GM/dL (10.7-15.3); LYMPH % 20.4 % (8-40); MCH 34.1 pg (25.7-33.7); MCHC 33.6 g/dl (32.0-36.0); MEAN CELL VOLUME 101.2 fl (80-96); MEAN PLT VOLUME 7.5 fl (7.5-11.1); MONO % 9.1 % (3.8-10.2); NEUT % 65.5 % (42.8-82.8); PLATELET COUNT 230 10^3/uL (134-434); RDW 12.9 % (11.6-15.6); WHITE BLOOD COUNT 8.6 K/mm3 (4.0-10.0)
[2022-01-01 11:22] LABS: ALBUMIN 2.2 g/dl (3.4-5.0); BLOOD UREA NITROGEN 15.8 mg/dL (7-18); CALCIUM 8.9 mg/dL (8.5-10.1); CREATININE 0.7 mg/dL (0.55-1.3)
[2022-01-01 11:24] LABS: BILIRUBIN,TOTAL 0.4 mg/dL (0.2-1); TOT PROT 5.5 g/dl (6.4-8.2)
[2022-01-01] MEDS: DOCUSATE SODIUM 100 MG CAPSULE (FP) PO SCH ×2 (12:22→21:46)
[2022-01-01] MEDS: LOSARTAN POTASSIUM 25 MG TABLET PO SCH (12:22)
[2022-01-01] MEDS: SPIRONOLACTONE 25 MG TABLET PO SCH (12:22)
[2022-01-01] MEDS: predniSONE 5 MG TABLET (UD) PO SCH (12:22)
[2022-01-01] MEDS: PANTOPRAZOLE 40 MG TABLET PO SCH (12:23)
[2022-01-01] MEDS: CLOTRIMAZOLE 1% CREAM TP SCH ×2 (12:23→21:48)
[2022-01-01] MEDS ORDERED: HEPARIN NA (PORCINE) 5,000 UNITS/ML 1ML VIAL ONE (13:47)
[2022-01-01] MEDS ORDERED: LIDOCAINE HCL 1%, 10 MG/ML (20ML VIAL) ONE (13:47)
[2022-01-01] MEDS: FLUTICASONE/SALMETEROL 100 MCG/50 MCG DISKUS IH SCH ×2 (14:45→23:51)
[2022-01-01] MEDS ORDERED: PROPOFOL 20 ML ONE (15:14)
[2022-01-01] MEDS ORDERED: MIDAZOLAM HCL 2 MG/2 ML SINGLE DOSE VIAL ONE (15:30)
[2022-01-01] MEDS ORDERED: ceFAZolin SODIUM 1 GM VIAL ONE ×2 (15:31→15:37)
[2022-01-01] MEDS ORDERED: LIDOCAINE HCL/PF 2% SDV 5ML VIAL ONE (15:31)
[2022-01-01] MEDS ORDERED: ceFAZolin SODIUM 1 GM VIAL IVPB ONE (15:42)
[2022-01-01] MEDS ORDERED: LIDOCAINE HCL 1%, 10 MG/ML (20ML VIAL) INF ONE ×2 (15:49)
[2022-01-01] MEDS ORDERED: PROMETHAZINE HCL 25 MG/1 ML VIAL IVPUSH PRN (16:45)
[2022-01-01] MEDS ORDERED: ONDANSETRON 4 MG/2 ML VIAL IVPUSH PRN (16:45)
[2022-01-01] MEDS ORDERED: CLOPIDOGREL BISULFATE 75 MG TABLET (FP) ONE (17:25)
[2022-01-01] MEDS: CLOPIDOGREL BISULFATE 75 MG TABLET (FP) PO SCH ×2 (17:30→17:31)
[2022-01-01] MEDS: LACTATED RINGERS SOLUTION 1,000 ML IV SCH (18:00)
[2022-01-01] MEDS: VANCOMYCIN/WATER FOR INJ (PEG) 1,000 MG/200 ML BAG IVPB SCH (18:51)
[2022-01-01] MEDS: INSULIN (LEVEMIR) 100 UNITS/ML UNITS SQ SCH (21:42)
[2022-01-01] MEDS: ATORVASTATIN CA 40 MG TABLET (FP) PO SCH (21:46)
[2022-01-02] MEDS ORDERED: DEXTROSE 5%-WATER - 50 ML IVPB ONE ×3 (02:04→17:07)
[2022-01-02] MEDS ORDERED: PIPERACILLIN/TAZOBACTAM 3.375 GM VIAL IVPB ONE ×3 (02:04→17:07)
[2022-01-02] MEDS: PIPERACILLIN/TAZOB 3.375 GM 3.375 GM in DEXTROSE 5%-WATER - 50 ML IVPB SCH ×3 (02:46→17:31)
[2022-01-02] MEDS: INSULIN (LEVEMIR) 100 UNITS/ML UNITS SQ SCH ×2 (06:25→21:53)
[2022-01-02] MEDS: LEVOTHYROXINE NA 88 MCG TABLET (FP) PO SCH (06:25)
[2022-01-02] MEDS: INSULIN SLIDING SCALE (NOVOLOG) 1 VIAL SQ SCH ×3 (06:26→16:58)
[2022-01-02] MEDS ORDERED: Insulin (LOG) Aspart 100 UNITS/ML VIAL SQ SCH (07:00)
[2022-01-02] MEDS: LACTATED RINGERS SOLUTION 1,000 ML IV SCH ×2 (08:30→17:00)
[2022-01-02 08:40] LABS: CALCIUM 8.4 mg/dL (8.5-10.1)
[2022-01-02 08:41] LABS: ALBUMIN 2.1 g/dl (3.4-5.0); BLOOD UREA NITROGEN 17.9 mg/dL (7-18)
[2022-01-02 08:44] LABS: CREATININE 0.7 mg/dL (0.55-1.3)
[2022-01-02 08:45] LABS: BILIRUBIN,TOTAL 0.3 mg/dL (0.2-1); TOT PROT 5.2 g/dl (6.4-8.2)
[2022-01-02 09:19] LABS: BASO % 0.7 % (0-2.0); EOS % 4.9 % (0-4.5); HEMATOCRIT 34.9 % (32.4-45.2); HEMOGLOBIN 11.4 GM/dL (10.7-15.3); LYMPH % 14.7 % (8-40); MCH 33.3 pg (25.7-33.7); MCHC 32.7 g/dl (32.0-36.0); MEAN CELL VOLUME 101.9 fl (80-96); MEAN PLT VOLUME 7.3 fl (7.5-11.1); MONO % 8.3 % (3.8-10.2); NEUT % 71.4 % (42.8-82.8); PLATELET COUNT 173 10^3/uL (134-434); RBC 3.43 M/mm3 (3.60-5.2); RDW 12.9 % (11.6-15.6); WHITE BLOOD COUNT 6.7 K/mm3 (4.0-10.0)
[2022-01-02] MEDS: SPIRONOLACTONE 25 MG TABLET PO SCH (09:52)
[2022-01-02] MEDS: DOCUSATE SODIUM 100 MG CAPSULE (FP) PO SCH ×2 (09:52→21:53)
[2022-01-02] MEDS: PANTOPRAZOLE 40 MG TABLET PO SCH (09:52)
[2022-01-02] MEDS: CLOPIDOGREL BISULFATE 75 MG TABLET (FP) PO SCH (09:52)
[2022-01-02] MEDS: LOSARTAN POTASSIUM 25 MG TABLET PO SCH (09:52)
[2022-01-02] MEDS: metoPROLOL SUCCINATE 25 MG TAB.SR.24H (FP) PO SCH (09:53)
[2022-01-02] MEDS: FLUTICASONE/SALMETEROL 100 MCG/50 MCG DISKUS IH SCH ×2 (09:53→21:53)
[2022-01-02] MEDS: predniSONE 5 MG TABLET (UD) PO SCH (09:53)
[2022-01-02] MEDS: ZINC OXIDE 20% TOPICAL OINTMENT 30 GM TUBE TP SCH ×2 (09:56→21:54)
[2022-01-02] MEDS: CLOTRIMAZOLE 1% CREAM TP SCH ×2 (09:56→21:54)
[2022-01-02] MEDS: ENOXAPARIN NA (PORCINE) 40 MG/0.4 ML DISP.SYRIN SQ SCH (10:05)
[2022-01-02] MEDS: ACETAMINOPHEN 325 MG TABLET (FP) PO PRN (10:46)
[2022-01-02] MEDS: Insulin (LOG) Aspart 100 UNITS/ML VIAL SQ SCH ×2 (11:57→16:58)
[2022-01-02] MEDS: VANCOMYCIN/WATER FOR INJ (PEG) 1,000 MG/200 ML BAG IVPB SCH (18:22)
[2022-01-02] MEDS: ATORVASTATIN CA 40 MG TABLET (FP) PO SCH (21:53)
[2022-01-02] MEDS: FLUTICASONE PROP 0.05% 16 GM NASAL SPRAY NS PRN (21:54)
[2022-01-03] MEDS ORDERED: PIPERACILLIN/TAZOBACTAM 3.375 GM VIAL IVPB ONE ×3 (01:28→21:05)
[2022-01-03] MEDS ORDERED: DEXTROSE 5%-WATER - 50 ML IVPB ONE ×3 (01:29→21:06)
[2022-01-03] MEDS: PIPERACILLIN/TAZOB 3.375 GM 3.375 GM in DEXTROSE 5%-WATER - 50 ML IVPB SCH ×3 (01:56→21:27)
[2022-01-03] MEDS: LACTATED RINGERS SOLUTION 1,000 ML IV SCH (04:34)
[2022-01-03] MEDS: LEVOTHYROXINE NA 88 MCG TABLET (FP) PO SCH (06:07)
[2022-01-03] MEDS: INSULIN (LEVEMIR) 100 UNITS/ML UNITS SQ SCH ×2 (06:08→21:28)
[2022-01-03] MEDS: Insulin (LOG) Aspart 100 UNITS/ML VIAL SQ SCH ×3 (06:08→17:52)
[2022-01-03] MEDS: INSULIN SLIDING SCALE (NOVOLOG) 1 VIAL SQ SCH ×3 (06:08→17:53)
[2022-01-03 09:13] LABS: BASO % 0.7 % (0-2.0); EOS % 4.1 % (0-4.5); HEMATOCRIT 23.2 % (32.4-45.2); HEMOGLOBIN 7.7 GM/dL (10.7-15.3); LYMPH % 17.6 % (8-40); MCH 33.7 pg (25.7-33.7); MCHC 33.4 g/dl (32.0-36.0); MEAN CELL VOLUME 100.8 fl (80-96); MEAN PLT VOLUME 7.2 fl (7.5-11.1); MONO % 10.1 % (3.8-10.2); NEUT % 67.5 % (42.8-82.8); PLATELET COUNT 177 10^3/uL (134-434); RDW 12.7 % (11.6-15.6)
[2022-01-03 09:37] LABS: CALCIUM 8.4 mg/dL (8.5-10.1)
[2022-01-03 09:40] LABS: CREATININE 0.6 mg/dL (0.55-1.3)
[2022-01-03] MEDS: ENOXAPARIN NA (PORCINE) 40 MG/0.4 ML DISP.SYRIN SQ SCH (10:58)
[2022-01-03] MEDS: DOCUSATE SODIUM 100 MG CAPSULE (FP) PO SCH ×2 (10:58→21:28)
[2022-01-03] MEDS: predniSONE 5 MG TABLET (UD) PO SCH (10:58)
[2022-01-03] MEDS: LOSARTAN POTASSIUM 25 MG TABLET PO SCH (10:58)
[2022-01-03] MEDS: SPIRONOLACTONE 25 MG TABLET PO SCH (10:58)
[2022-01-03] MEDS: metoPROLOL SUCCINATE 25 MG TAB.SR.24H (FP) PO SCH (10:58)
[2022-01-03] MEDS: PANTOPRAZOLE 40 MG TABLET PO SCH (10:58)
[2022-01-03] MEDS: CLOPIDOGREL BISULFATE 75 MG TABLET (FP) PO SCH (10:58)
[2022-01-03] MEDS: FLUTICASONE/SALMETEROL 100 MCG/50 MCG DISKUS IH SCH ×2 (10:59→21:28)
[2022-01-03] MEDS: CLOTRIMAZOLE 1% CREAM TP SCH ×2 (10:59→21:28)
[2022-01-03] MEDS: ZINC OXIDE 20% TOPICAL OINTMENT 30 GM TUBE TP SCH ×2 (11:00→21:28)
[2022-01-03] MEDS: FLUTICASONE PROP 0.05% 16 GM NASAL SPRAY NS PRN (11:00)
[2022-01-03] MEDS: ATORVASTATIN CA 40 MG TABLET (FP) PO SCH (21:28)
[2022-01-03] MEDS: VANCOMYCIN/WATER FOR INJ (PEG) 1,000 MG/200 ML BAG IVPB SCH (22:11)
[2022-01-03 23:02] LABS: BASO % 0.8 % (0-2.0); EOS % 2.9 % (0-4.5); HEMATOCRIT 30.1 % (32.4-45.2); HEMOGLOBIN 10.2 GM/dL (10.7-15.3); LYMPH % 17.5 % (8-40); MCH 33.1 pg (25.7-33.7); MEAN CELL VOLUME 97.2 fl (80-96); MEAN PLT VOLUME 7.3 fl (7.5-11.1); MONO % 8.7 % (3.8-10.2); NEUT % 70.1 % (42.8-82.8); PLATELET COUNT 189 10^3/uL (134-434); RDW 15.1 % (11.6-15.6); WHITE BLOOD COUNT 9.5 K/mm3 (4.0-10.0)
[2022-01-04] MEDS ORDERED: PIPERACILLIN/TAZOBACTAM 3.375 GM VIAL IVPB ONE ×3 (01:29→17:39)
[2022-01-04] MEDS ORDERED: DEXTROSE 5%-WATER - 50 ML IVPB ONE ×3 (01:30→17:39)
[2022-01-04] MEDS: PIPERACILLIN/TAZOB 3.375 GM 3.375 GM in DEXTROSE 5%-WATER - 50 ML IVPB SCH ×3 (02:43→17:59)
[2022-01-04] MEDS: Insulin (LOG) Aspart 100 UNITS/ML VIAL SQ SCH ×3 (06:18→16:50)
[2022-01-04] MEDS: LEVOTHYROXINE NA 88 MCG TABLET (FP) PO SCH (06:18)
[2022-01-04] MEDS: INSULIN (LEVEMIR) 100 UNITS/ML UNITS SQ SCH ×2 (06:18→22:10)
[2022-01-04] MEDS: INSULIN SLIDING SCALE (NOVOLOG) 1 VIAL SQ SCH ×3 (06:19→16:49)
[2022-01-04 09:49] LABS: BASO % 0.8 % (0-2.0); EOS % 3.7 % (0-4.5); HEMATOCRIT 31.1 % (32.4-45.2); HEMOGLOBIN 10.6 GM/dL (10.7-15.3); LYMPH % 17.2 % (8-40); MCH 32.9 pg (25.7-33.7); MEAN CELL VOLUME 96.9 fl (80-96); MEAN PLT VOLUME 7.5 fl (7.5-11.1); MONO % 9.5 % (3.8-10.2); NEUT % 68.8 % (42.8-82.8); PLATELET COUNT 200 10^3/uL (134-434); RBC 3.21 M/mm3 (3.60-5.2); RDW 15.9 % (11.6-15.6); WHITE BLOOD COUNT 10.2 K/mm3 (4.0-10.0)
[2022-01-04] MEDS: ACETAMINOPHEN 325 MG TABLET (FP) PO PRN (10:40)
[2022-01-04] MEDS: DOCUSATE SODIUM 100 MG CAPSULE (FP) PO SCH ×2 (10:41→22:06)
[2022-01-04] MEDS: CLOPIDOGREL BISULFATE 75 MG TABLET (FP) PO SCH (10:41)
[2022-01-04] MEDS: PANTOPRAZOLE 40 MG TABLET PO SCH (10:41)
[2022-01-04] MEDS: SPIRONOLACTONE 25 MG TABLET PO SCH (10:42)
[2022-01-04] MEDS: metoPROLOL SUCCINATE 25 MG TAB.SR.24H (FP) PO SCH (10:42)
[2022-01-04] MEDS: predniSONE 5 MG TABLET (UD) PO SCH (10:42)
[2022-01-04] MEDS: LOSARTAN POTASSIUM 25 MG TABLET PO SCH (10:42)
[2022-01-04] MEDS: FLUTICASONE/SALMETEROL 100 MCG/50 MCG DISKUS IH SCH ×2 (10:42→22:06)
[2022-01-04] MEDS: ZINC OXIDE 20% TOPICAL OINTMENT 30 GM TUBE TP SCH ×2 (10:43→22:06)
[2022-01-04] MEDS: CLOTRIMAZOLE 1% CREAM TP SCH ×2 (10:44→22:06)
[2022-01-04] MEDS: FLUTICASONE PROP 0.05% 16 GM NASAL SPRAY NS PRN (10:57)
[2022-01-04] MEDS: VANCOMYCIN/WATER FOR INJ (PEG) 1,000 MG/200 ML BAG IVPB SCH (19:15)
[2022-01-04] MEDS: ATORVASTATIN CA 40 MG TABLET (FP) PO SCH (22:06)
[2022-01-05] MEDS ORDERED: DEXTROSE 5%-WATER - 50 ML IVPB ONE ×2 (02:27→10:57)
[2022-01-05] MEDS ORDERED: PIPERACILLIN/TAZOBACTAM 3.375 GM VIAL IVPB ONE ×2 (02:27→10:57)
[2022-01-05] MEDS: ACETAMINOPHEN 325 MG TABLET (FP) PO PRN (02:59)
[2022-01-05] MEDS: PIPERACILLIN/TAZOB 3.375 GM 3.375 GM in DEXTROSE 5%-WATER - 50 ML IVPB SCH ×3 (02:59→14:03)
[2022-01-05] MEDS: Insulin (LOG) Aspart 100 UNITS/ML VIAL SQ SCH ×2 (06:01→14:04)
[2022-01-05] MEDS: LEVOTHYROXINE NA 88 MCG TABLET (FP) PO SCH (06:01)
[2022-01-05] MEDS: INSULIN (LEVEMIR) 100 UNITS/ML UNITS SQ SCH (06:01)
[2022-01-05] MEDS: INSULIN SLIDING SCALE (NOVOLOG) 1 VIAL SQ SCH ×2 (06:02→14:04)
[2022-01-05 06:39] VITALS: PULSE 57
[2022-01-05 11:10] VITALS: BP 145/51; TEMP 97.5
[2022-01-05] MEDS: SPIRONOLACTONE 25 MG TABLET PO SCH (11:14)
[2022-01-05] MEDS: metoPROLOL SUCCINATE 25 MG TAB.SR.24H (FP) PO SCH (11:14)
[2022-01-05] MEDS: DOCUSATE SODIUM 100 MG CAPSULE (FP) PO SCH (11:14)
[2022-01-05] MEDS: LOSARTAN POTASSIUM 25 MG TABLET PO SCH (11:14)
[2022-01-05] MEDS: PANTOPRAZOLE 40 MG TABLET PO SCH (11:14)
[2022-01-05] MEDS: predniSONE 5 MG TABLET (UD) PO SCH (11:14)
[2022-01-05] MEDS: CLOPIDOGREL BISULFATE 75 MG TABLET (FP) PO SCH (11:14)
[2022-01-05] MEDS: FLUTICASONE/SALMETEROL 100 MCG/50 MCG DISKUS IH SCH (11:15)
[2022-01-05] MEDS: ZINC OXIDE 20% TOPICAL OINTMENT 30 GM TUBE TP SCH (11:16)
[2022-01-05] MEDS: CLOTRIMAZOLE 1% CREAM TP SCH (11:17)
[2022-01-05] MEDS: FLUTICASONE PROP 0.05% 16 GM NASAL SPRAY NS PRN (11:20)
[2022-01-06] MEDS ORDERED: MULTIVITAMINS THER W-MINERALS COMBO TABLET (FP) PO SCH (10:00)
== END 2022-01-05 17:10 | DRG 271 ==
LOC: JER 14:26 → JERBED 16:13 → J5S 12-23 10:31
PROVIDERS: ADMIT Hospitalist; ATTEND Internal Medicine
PROC: 04CP3ZZ Extirpation of Matter from Right Anterior Tibial Artery, Percutaneous Approach (ICD-10-PCS; 2022-01-01)
PROC: 047P3ZZ Dilation of Right Anterior Tibial Artery, Percutaneous Approach (ICD-10-PCS; 2022-01-01)
PROC: B518ZZA Fluoroscopy of Superior Vena Cava, Guidance (ICD-10-PCS; 2022-01-01)
PROC: B41DZZZ Fluoroscopy of Aorta and Bilateral Lower Extremity Arteries (ICD-10-PCS; 2022-01-01)
PROC: 30233N1 Transfusion of Nonautologous Red Blood Cells into Peripheral Vein, Percutaneous Approach (ICD-10-PCS; 2022-01-03)
PROC: 02HV33Z Insertion of Infusion Device into Superior Vena Cava, Percutaneous Approach (ICD-10-PCS; principal; 2022-01-05)
PROC: B40FYZZ Plain Radiography of Right Lower Extremity Arteries using Other Contrast (ICD-10-PCS; 2022-01-05)
DX: E11.52 Type 2 diabetes mellitus with diabetic peripheral angiopathy with gangrene (principal); L03.115 Cellulitis of right lower limb; M86.8X7 Other osteomyelitis, ankle and foot; L97.518 Non-pressure chronic ulcer of other part of right foot with other specified severity; E27.40 Unspecified adrenocortical insufficiency; I50.22 Chronic systolic (congestive) heart failure; D86.9 Sarcoidosis, unspecified; Z85.3 Personal history of malignant neoplasm of breast; N32.81 Overactive bladder; R21 Rash and other nonspecific skin eruption; E11.65 Type 2 diabetes mellitus with hyperglycemia; E11.69 Type 2 diabetes mellitus with other specified complication; B95.7 Other staphylococcus as the cause of diseases classified elsewhere; L30.4 Erythema intertrigo; E83.42 Hypomagnesemia; D64.9 Anemia, unspecified; E11.621 Type 2 diabetes mellitus with foot ulcer; I11.0 Hypertensive heart disease with heart failure; F41.9 Anxiety disorder, unspecified; B37.9 Candidiasis, unspecified
CPT/HCPCS: 0241U-QW; 36415; 36430; 36569; 71045-TC-FY; 73630-TC-RT-FY; 76000-TC-FY; 77001-TC-FY; 80048; 80053; 80061; 82962; 83036; 83735; 83880; 84100; 84443; 85025; 85027; 85610; 85651; 85730; 86140; 86850; 86900; 86901; 86922; 87040; 93005; 93010; 93306-TC; 93922; 93926-TC; 93970-TC; 94010; 94760; 97116-GP; 97161-GP; 99285-25; C1751; C9803-CS; G0480; J1644; P9058; U0003; U0005